=== PATIENT | male | born 1975 | race African-American/Black ===

== ENCOUNTER → 2017-05-06 | Outpatient (CLI) | payer OTHER ==
[~2017-05-06] MED LIST: Z.0.NO CURRENT MEDS
[2017-05-06 09:49] LABS: AUTOMATED NEUTROPHIL # 5.9 TH/MM3 (1.8-7.7); BASOPHIL # 0.1 TH/MM3 (0-0.2); BASOPHIL % 0.9 % (0.0-2.0); EOSINOPHIL # 0.5 TH/MM3 (0-0.4); HEMATOCRIT 42.8 % (39.0-51.0); HEMO FLAGS DIFF FINAL; LYMPH % 36.6 % (9.0-44.0); LYMPHOCYTE # 4.5 TH/MM3 (1.0-4.8); MEAN CELL VOLUME 98.5 FL (80.0-100.0); MEAN CORPUSCULAR HEMOGLOBIN 33.2 PG (27.0-34.0); MEAN CORPUSCULAR HGB CONC 33.7 % (32.0-36.0); MONO % 10.8 % (0.0-8.0); NEUT % 47.7 % (16.0-70.0); PLATELET COUNT 298 TH/MM3 (150-450); RED BLOOD COUNT 4.35 MIL/MM3 (4.50-5.90); RED CELL DISTRIBUTION WIDTH 13.9 % (11.6-17.2); WHITE BLOOD COUNT 12.4 TH/MM3 (4.0-11.0)
[2017-05-06 10:22] LABS: ALT (GPT) 30 U/L (12-78); ANION GAP 9 MEQ/L (5-15); AST (GOT) 29 U/L (15-37); BICARBONATE 26.1 MEQ/L (21.0-32.0); BLOOD UREA NITROGEN 9 MG/DL (7-18); CHLORIDE 104 MEQ/L (98-107); GLOMERULAR FILTRATION RATE 110 ML/MIN (>89); GLUCOSE,FASTING 97 MG/DL (74-99); POTASSIUM 3.1 MEQ/L (3.5-5.1); SODIUM (NA) 139 MEQ/L (136-145)
[2017-05-06 10:24] LABS: ALKALINE PHOSPHATASE 85 U/L (45-117)
== END ==
LOC: CLAB 09:16
PROVIDERS: ATTEND Family Medicine
DX: G43.119 Migraine with aura, intractable, without status migrainosus (principal)
CPT/HCPCS: 36415; 80053; 85025